=== PATIENT | female | born 1960 | race Caucasian/White ===

== ENCOUNTER → 2018-04-19 | Outpatient (CLI) | payer BC ==
--- NOTE | 2018-04-19 15:28 | KCIC ---
Right lower extremity soft tissue ultrasound 04/19/2018 INDICATION: Right groin lump. History of scar in this area. History of breast cancer 7 years ago. COMPARISON: None available. TECHNIQUE: Sonographic evaluation of the right groin region was performed utilizing grayscale and color Doppler. FINDINGS: There is no significant skin thickening. No fluid collection is identified. There is a subcutaneous nodule which is well-circumscribed, wider than it is tall and predominately solid measuring 6 x 2 x 4 mm. There may be minimal internal vascularity. IMPRESSION: Subcutaneous nodule in the right groin area along the area of a scar is indeterminate by imaging. Correlate with any history of biopsy or surgery in this region. If this finding is new or increasing in size clinically, tissue sampling may be of benefit. No evidence for abscess. Electronically signed by: Libby Cooper MD (04/19/2018 3:24 PM) [email or web address]
== END | disposition home or self-care (01) ==
LOC: KCIC US 08:46
PROVIDERS: ATTEND Family Medicine
DX: R19.09 Other intra-abdominal and pelvic swelling, mass and lump (principal); Z85.3 Personal history of malignant neoplasm of breast
CPT/HCPCS: 76881

== ENCOUNTER → 2019-09-11 | Outpatient (CLI) | payer BC ==
--- NOTE | 2019-09-11 16:18 | KCIC ---
CERVICAL SPINE WO CONTRAST History: Cranial nerve root impingement. Left upper extremity paresthesia. Technique: Multiplanar, multi sequential noncontrast MR imaging was performed of the cervical spine. Comparison: None Findings: Minimal grade 1 anterolisthesis C3 on C4 and C7 on T1. Otherwise, normal alignment. Normal vertebral body height. No fracture. No pathologic signal abnormality within the cervical spinal cord. C2-C3: Small posterior disc bulge. No canal or neuroforaminal narrowing. C3-C4: Anterolisthesis. Minimal canal narrowing. Uncovertebral and facet arthropathy, right greater than left. Moderate to severe right and moderate left neuroforaminal narrowing. C4-C5: No canal narrowing. No neuroforaminal narrowing. Mild facet arthropathy. C5-C6: Posterior disc osteophyte complex eccentric to the left. No canal narrowing. Mild left neuroforaminal narrowing. No right neuroforaminal narrowing. Left facet arthropathy. C6-C7: Disc osteophyte complex with left foraminal disc protrusion. No canal narrowing. Left uncovertebral and facet arthropathy. Severe left neuroforaminal narrowing. No right neuroforaminal narrowing. C7-T1: No canal or neuroforaminal narrowing. Facet arthropathy. Impression: 1. Moderate multilevel cervical spondylosis. 2. Multilevel neuroforaminal narrowing severe left C6-C7 and right C3-C4. Electronically signed by: Willam Farmer DO (09/11/2019 4:15 PM) [email or web address]
== END | disposition home or self-care (01) ==
LOC: KCIC MRI 11:31
PROVIDERS: ATTEND Family Medicine
DX: M47.813 Spondylosis without myelopathy or radiculopathy, cervicothoracic region (principal); M50.21 Other cervical disc displacement, high cervical region; M43.13 Spondylolisthesis, cervicothoracic region; M48.02 Spinal stenosis, cervical region
CPT/HCPCS: 72141

== ENCOUNTER → 2020-02-15 | Outpatient (CLI) | payer BC ==
[~2020-02-15] MED LIST: CONTRAST GIVEN. MC PRN; IOHEXOL 240 MG/ML 50ML VIAL. PO ONE; IOHEXOL 300 MG/ML 100ML VIAL. IV ONE
--- NOTE | 2020-02-15 11:50 | KCIC ---
CT scan of the abdomen and pelvis with contrast 02/15/2020 CLINICAL HISTORY: Hyperbilirubinemia. Abnormal liver function tests. History of breast cancer. TECHNIQUE: After the oral and intravenous administration of contrast, contiguous, 5 mm axial sections were obtained through the abdomen and pelvis. 100 cc of Omnipaque 300 were administered intravenously during this examination. One or more of the following individualized dose reduction techniques were utilized for this study: 1. Automated exposure control. 2. Adjustment of the mA and/or kV according to patient size. 3. Use of iterative reconstruction technique. FINDINGS: Comparison study is dated 10/20/2015. Images from the lung bases demonstrate borderline cardiomegaly. Minimal dependent subsegmental atelectasis is seen bilaterally. A 6 mm calcified granuloma is seen involving the right lower lobe. The right lobe of the liver is small, somewhat nodular and heterogeneous in its attenuation. It has decreased in size since the previous examination. These findings are suggestive of cirrhosis. The left lobe of the liver is enlarged. A poorly defined masslike area is seen involving the majority of the left lobe of the liver, particularly superiorly. This measures 18.8 x 11.9 x 11.5 centimeters in transverse, craniocaudal and AP dimensions. This was not seen on previous examination and is concerning for a neoplastic process (metastatic disease versus hepatocellular carcinoma). Multiple low-attenuation heterogeneous areas that are not well-defined are seen scattered throughout the liver which may represent additional mass lesions. These measure 5 mm to 3 cm in size. The spleen is mildly enlarged measuring 15.6 cm in length. The pancreas, adrenal glands and left kidney within normal limits. Rounded low-attenuation lesions are seen involving the right kidney which measure 3 mm to 1.5 cm in size. They likely represent cysts. No further imaging workup is recommended. Prominent varices are seen throughout the abdomen consistent with portal hypertension. No ascites is noted. There is no evidence of bowel obstruction. The gallbladder is slightly contracted. Atherosclerotic calcification of the abdominal aorta and its branches is noted. The abdominal aorta tapers normally. No retroperitoneal lymphadenopathy is noted. Images through the pelvis demonstrate the urinary bladder to be contracted. The patient appears to be post hysterectomy. No adnexal mass is seen. Diverticula are seen involving the sigmoid colon. No inflammatory changes are seen in the adjacent fat. Calcifications are seen within the pelvis consistent with phleboliths. No free fluid is seen. No pelvic or inguinal lymphadenopathy is noted. Very mild S-shaped curvature of the thoracolumbar spine is seen. Degenerative changes are seen involving the lower thoracic and throughout the lumbar spine along with both hips. IMPRESSION: 1. Findings are seen consistent with cirrhosis of the liver. There is mild splenomegaly. Prominent varices are seen throughout the abdomen consistent with portal hypertension. No ascites is noted. 2. The left lobe of the liver is enlarged and heterogeneous. A masslike area is seen which measures 18.8 cm in greatest diameter. This is concerning for a neoplastic process (metastatic disease versus hepatocellular carcinoma). Multiple additional low-attenuation lesions are seen scattered throughout the liver which are poorly defined, measuring 5 mm to 3 cm in size, which may represent additional mass lesions. These findings were discussed with Dr. Ana smith. Electronically signed by: Kamari Mehta MD (02/15/2020 11:47 AM) [id number]
== END | disposition home or self-care (01) ==
LOC: KCIC CT 08:03
PROVIDERS: ATTEND Family Medicine
DX: R16.2 Hepatomegaly with splenomegaly, not elsewhere classified (principal); E80.6 Other disorders of bilirubin metabolism; R94.5 Abnormal results of liver function studies; I70.0 Atherosclerosis of aorta; I51.7 Cardiomegaly; J98.11 Atelectasis; M43.8X5 Other specified deforming dorsopathies, thoracolumbar region; M47.815 Spondylosis without myelopathy or radiculopathy, thoracolumbar region
CPT/HCPCS: 74177; Q9966; Q9967